=== PATIENT | female | born 1945 | race Caucasian/White ===

== ENCOUNTER 2017-05-15 10:07 | Emergency (ER) | payer MEDICARE, BC ==
[2017-05-15 10:20] VITALS: BP 156/87
--- NOTE | 2017-05-15 11:33 | EDM.PDOC ---
ED HPI GENERAL MEDICAL PROBLEM - General Chief Complaint: Lower Extremity Injury/Pain Stated Complaint: WEAKNESS IN LEGS Time Seen by Provider: 05/15/17 11:08 Source of Information: Reports: Patient History Limitations: Reports: No Limitations - History of Present Illness INITIAL COMMENTS - FREE TEXT/NARRATIVE: Patient is a 71-year-old female presents ED complaining of bilateral groin pain. Left is greater than right. Started last night approximately 2030 4 no known reason. Patient was sitting in a recliner was going to bed when the discomfort started. She states her legs are weak but really means that with weightbearing there is some discomfort to her groins worsen with lifting her legs. Pain is localized to the groin. Throughout the course of the evening the discomfort has not improved. No known precipitating factors. Denies any recent fall. There is no history of inguinal hernias. No pain noted to the distal aspect of her leg. No swelling, change in skin color, numbness/tingling, or claudication noted. She has had similar findings in the past for unknown reason. She has not done anything out of the ordinary have precipitated this. Patient lives a sedentary lifestyle. Pain is again localized described as a sharp discomfort. She has not taken any medications for the discomfort. She denies any soreness to her neck or shoulder region. No history of polymyalgia rheumatica. No history of myositis. Denies any fever/chills, nausea/vomiting, chest pain, shortness of breath, abdominal pain, dysuria, or any additional complaints. Left Groin Pain Score (Numeric/FACES): 2 - Related Data Allergies Allergy/AdvReac Type Severity Reaction Status Date / Time amoxicillin [From Augmentin] Allergy Change Verified 05/15/17 10:15 Mental Status clavulanic acid Allergy Change Verified 05/15/17 10:15 [From Augmentin] Mental Status Iymfivc-Oyp-Unm Reductase Allergy Joint Pain Verified 05/15/17 10:15 Inhibitor telmisartan [From Micardis] Allergy Other Verified 05/15/17 10:15 Home Meds: Home Meds Hydrochlorothiazide 25 mg PO DAILY 05/29/16 [History] Lisinopril 30 mg PO DAILY 05/29/16 [History] metFORMIN [Glucophage] 850 mg PO BID 05/29/16 [History] Past Medical History Cardiovascular History: Reports: Hypertension Gastrointestinal History: Reports: GERD Musculoskeletal History: Reports: Osteoarthritis Endocrine/Metabolic History: Reports: Diabetes, Type II Oncologic (Cancer) History: Reports: Basal Cell Carcinoma - Past Surgical History HEENT Surgical History: Reports: Tonsillectomy GI Surgical History: Reports: Cholecystectomy Female Surgical History: Reports: Hysterectomy Musculoskeletal Surgical History: Reports: Knee Replacement Social & Family History - Tobacco Use Smoking Status *Q: Never Smoker Second Hand Smoke Exposure: No - Caffeine Use Caffeine Use: Reports: Soda - Recreational Drug Use Recreational Drug Use: No - Living Situation & Occupation Living situation: Reports: , Alone Occupation: Retired Review of Systems - Review of Systems Review Of Systems: ROS reveals no pertinent complaints other than HPI. ED EXAM, GENERAL - Physical Exam Exam: See Below Exam Limited By: No Limitations General Appearance: Alert, WD/WN, No Apparent Distress Ears: Hearing Grossly Normal Nose: Normal Inspection Throat/Mouth: Normal Voice, No Airway Compromise Neck: Normal Inspection Respiratory/Chest: No Respiratory Distress, Lungs Clear, Normal Breath Sounds Cardiovascular: Normal Peripheral Pulses, Regular Rate, Rhythm Peripheral Pulses: 2+: Radial (R) GI/Abdominal: Normal Bowel Sounds, Soft, Non-Tender, No Organomegaly, No Distention, Other (No direct or femoral inguinal hernias present. No pain with palpation. Pain is worsen with flexion of the upper leg bilaterally. Again left greater than right. No sensory/motor deficits distally. No concerns for DVT.) Extremities: Normal Inspection, Non-Tender (With palpation), No Pedal Edema, Normal Capillary Refill, Other (Tenderness noted to the left and right groin with flexion of upper legs.) Neurological: Alert, Oriented, CN II-XII Intact, Normal Cognition, No Motor/ Sensory Deficits Psychiatric: Normal Affect, Normal Mood Skin Exam: Warm, Dry, Intact, Normal Color Course - Vital Signs Last Recorded V/S: Last Vital Signs Temp 97.8 F 05/15/17 10:15 Pulse 98 05/15/17 10:15 Resp 16 05/15/17 10:15 BP 156/87 H 05/15/17 10:15 Pulse Ox 92 L 05/15/17 10:15 - Orders/Labs/Meds Orders: Active Orders 24 hr Category Date Time Status EKG 12 Lead [EKG Documentation Completion] [RC] STAT Care 05/15/17 10:34 Active Labs: Laboratory Tests 05/15/17 05/15/17 05/15/17 Range/Units 10:50 10:50 10:50 WBC 12.21 H (3.98-10.04) K/mm3 RBC 4.80 (3.98-5.22) M/mm3 Hgb 14.0 (11.2-15.7) gm/L Hct 42.6 (34.1-44.9) % MCV 88.8 (79.4-94.8) fl MCH 29.2 (25.6-32.2) pg MCHC 32.9 (32.2-35.5) g/dl RDW Std Deviation 40.9 (36.4-46.3) fL Plt Count 265 (182-369) K/mm3 MPV 10.6 (9.4-12.3) fl Neut % (Auto) 67.9 (34.0-71.1) % Lymph % (Auto) 18.2 L (19.3-51.7) % [place] % (Auto) 12.3 (4.7-12.5) % Eos % (Auto) 1.0 (0.7-5.8) Baso % (Auto) 0.4 (0.1-1.2) % Neut # (Auto) 8.29 H (1.56-6.13) K/mm3 Lymph # (Auto) 2.22 (1.18-3.74) K/mm3 [place] # (Auto) 1.50 H (0.24-0.36) K/mm3 Eos # (Auto) 0.12 (0.04-0.36) K/mm3 Baso # (Auto) 0.05 (0.01-0.08) K/mm3 ESR 28 H (0-20) mm/hr Sodium 142 (136-145) mEq/L Potassium 3.6 (3.5-5.1) mEq/L Chloride 103 (98-107) mEq/L Carbon Dioxide 28 (21-32) mEq/L Anion Gap 14.6 (5-15) BUN 12 (7-18) mg/dL Creatinine 1.0 (0.55-1.02) mg/dL Est Cr Clr Drug Dosing 45.85 mL/min Estimated GFR (MDRD) 55 (>60) mL/min BUN/Creatinine Ratio 12.0 L (14-18) Glucose 158 H (80-115) mg/dL Calcium 9.4 (8.5-10.1) mg/dL Total Bilirubin 0.5 (0.2-1.0) mg/dL AST 16 (15-37) U/L ALT 20 (14-59) U/L Alkaline Phosphatase 52 (46-116) U/L Creatine Kinase (26-192) U/L C-Reactive Protein (<1.0) mg/dL Total Protein 7.2 (6.4-8.2) g/dl Albumin 3.5 (3.4-5.0) g/dl Globulin 3.7 gm/dL Albumin/Globulin Ratio 1.0 (1-2) Urine Color (Yellow) Urine Appearance (Clear) Urine pH (5.0-8.0) Ur Specific [place] (1.005-1.030) Urine Protein (Negative) Urine Glucose (UA) (Negative) Urine Ketones (Negative) Urine Occult Blood (Negative) Urine Nitrite (Negative) Urine Bilirubin (Negative) Urine Urobilinogen (0.2-1.0) Ur Leukocyte Esterase (Negative) Urine RBC (0-5) /hpf Urine WBC (0-5) /hpf Ur Epithelial Cells (0-5) /hpf Calcium Oxalate Crystal (NONE) Urine Bacteria (FEW) /hpf Urine Mucus (FEW) /hpf 05/15/17 05/15/17 05/15/17 Range/Units 10:50 10:50 14:15 WBC (3.98-10.04) K/mm3 RBC (3.98-5.22) M/mm3 Hgb (11.2-15.7) gm/L Hct (34.1-44.9) % MCV (79.4-94.8) fl MCH (25.6-32.2) pg MCHC (32.2-35.5) g/dl RDW Std Deviation (36.4-46.3) fL Plt Count (182-369) K/mm3 MPV (9.4-12.3) fl Neut % (Auto) (34.0-71.1) % Lymph % (Auto) (19.3-51.7) % [place] % (Auto) (4.7-12.5) % Eos % (Auto) (0.7-5.8) Baso % (Auto) (0.1-1.2) % Neut # (Auto) (1.56-6.13) K/mm3 Lymph # (Auto) (1.18-3.74) K/mm3 [place] # (Auto) (0.24-0.36) K/mm3 Eos # (Auto) (0.04-0.36) K/mm3 Baso # (Auto) (0.01-0.08) K/mm3 ESR (0-20) mm/hr Sodium (136-145) mEq/L Potassium (3.5-5.1) mEq/L Chloride (98-107) mEq/L Carbon Dioxide (21-32) mEq/L Anion Gap (5-15) BUN (7-18) mg/dL Creatinine (0.55-1.02) mg/dL Est Cr Clr Drug Dosing mL/min Estimated GFR (MDRD) (>60) mL/min BUN/Creatinine Ratio (14-18) Glucose (80-115) mg/dL Calcium (8.5-10.1) mg/dL Total Bilirubin (0.2-1.0) mg/dL AST (15-37) U/L ALT (14-59) U/L Alkaline Phosphatase (46-116) U/L Creatine Kinase 45 (26-192) U/L C-Reactive Protein 3.0 H* (<1.0) mg/dL Total Protein (6.4-8.2) g/dl Albumin (3.4-5.0) g/dl Globulin gm/dL Albumin/Globulin Ratio (1-2) Urine Color Yellow (Yellow) Urine Appearance Clear (Clear) Urine pH 6.0 (5.0-8.0) Ur Specific [place] 1.025 (1.005-1.030) Urine Protein Negative (Negative) Urine Glucose (UA) Negative (Negative) Urine Ketones Negative (Negative) Urine Occult Blood Negative (Negative) Urine Nitrite Negative (Negative) Urine Bilirubin Negative (Negative) Urine Urobilinogen 0.2 (0.2-1.0) Ur Leukocyte Esterase Negative (Negative) Urine RBC 0-5 (0-5) /hpf Urine WBC 0-5 (0-5) /hpf Ur Epithelial Cells 0-5 (0-5) /hpf Calcium Oxalate Crystal Few H (NONE) Urine Bacteria Few (FEW) /hpf Urine Mucus Few (FEW) /hpf Meds: Medications Discontinued Medications Generic Name Dose Route Start Last Admin Trade Name Margaret PRN Reason Stop Dose Admin Acetaminophen 975 mg 05/15/17 13:33 05/15/17 14:02 Tylenol PO 05/15/17 13:34 975 mg NOW ONE Administration - Re-Assessments/Exams Free Text/Narrative Re-Assessment/Exam: Will obtain basic labs including CBC, chem 14, CRP, and ESR. EKG and chest x- ray were obtained prior to me seeing the patient. Patient had sats in the low 90s and thus O2 via nasal cannula was applied. Sats are 92% at this time. EKG revealed sinus rhythm at a rate of [address] changes. Labs reviewed. Mild elevation of WBC with left shift. CRP is 3 and esr is 28. UA is pending. 05/15/17 13:33 Ordered CK and tylenol 975mg PO. 05/15/17 14:59 CK was 45. UA was negative for infection. Will discharge patient home with instructions as documented. Departure - Departure Time of Disposition: 14:59 Disposition: Home, Self-Care 01 Condition: Good (inguinal pain) Clinical Impression: Inguinal pain of both sides - Discharge Information Referrals: Elizabeth Giles DO [Primary Care Provider] - Forms: ED Department Discharge Additional Instructions: Etiology of complaint musculoskeletal in nature. Thus treatment is symptomatic care including: refrain from any activities that cause worsening pain, tylenol 650mg every 6 hrs and ibuprofen 600mg every 6 hours in alternating fashion for pain, ice to the affected area as needed. Followup with PCP the end of this week or first part of next week for resolution. If symptoms worsening please return to the E.D.
--- NOTE | 2017-05-15 12:13 | CR ---
Chest: Portable view of the chest was obtained. Comparison: Previous chest x-ray of 05/29/[address] chest of 05/29/16. Heart size and mediastinum are within normal limits. Lungs are clear. Bony structures are grossly intact. Impression: 1. Nothing acute is appreciated on portable chest x-ray. Diagnostic code #1
[2017-05-15] MEDS ORDERED: Acetaminophen 325 MG Tab PO ONE (13:33)
== END 2017-05-15 15:23 | disposition home or self-care (01) ==
LOC: JD.ED 10:07
DX: R10.31 Right lower quadrant pain (principal); R10.32 Left lower quadrant pain; I10 Essential (primary) hypertension; K21.9 Gastro-esophageal reflux disease without esophagitis; M19.90 Unspecified osteoarthritis, unspecified site; E11.9 Type 2 diabetes mellitus without complications; Z88.1 Allergy status to other antibiotic agents; Z79.899 Other long term (current) drug therapy; Z79.84 Long term (current) use of oral hypoglycemic drugs
CPT/HCPCS: 36415; 71010; 80053; 81001; 82550; 85025; 85652; 86140; 93005; 99284; A9270

== ENCOUNTER 2020-05-07 16:17 | Emergency (ER) | payer MEDICARE, BC ==
[2020-05-07 16:35] VITALS: BP 136/78; PULSE 75
--- NOTE | 2020-05-07 16:59 | CR ---
Left ankle: 4 views left ankle were obtained. Comparison: No previous ankle study. Plantar spur is noted. Vascular calcification is seen. Bony structures are slightly osteopenic. Soft tissue swelling appears to be present. No acute fracture or other bony abnormality is appreciated. Impression: 1. Findings as noted above. 2. Nothing acute is appreciated on left ankle exam. Diagnostic code #2 This report was dictated in MDT
--- NOTE | 2020-05-07 17:00 | CR ---
Left foot: 4 views left foot were obtained. Comparison: No previous foot study. Plantar spur is noted. Soft tissue swelling appears to be present. No discrete fracture or other bony abnormality is appreciated. Impression: 1. Soft soft tissue swelling and plantar spur. 2. No definite acute abnormality is appreciated on left foot exam. Diagnostic code #2 This report was dictated in MDT
--- NOTE | 2020-05-07 17:25 | EDM.PDOC ---
ED HPI GENERAL MEDICAL PROBLEM - General Chief Complaint: Lower Extremity Injury/Pain Stated Complaint: LT FOOT AND ANKLE SWOLLEN Time Seen by Provider: 05/07/20 16:38 Source of Information: Reports: Patient, RN Notes Reviewed History Limitations: Reports: No Limitations - History of Present Illness INITIAL COMMENTS - FREE TEXT/NARRATIVE: Patient is a 74-year-old female who presents to the ED for left ankle pain, and swelling. She states that she did have a fall up some stairs about a week ago, but did not think she hurt herself. She did note that the pain kind of develop ed on Monday but definitely got worse today. She also is appreciating some swelling to her left ankle. She is not taking any sort of Tylenol ibuprofen for pain management, she has not iced the area to help relieve some of the swelling. Nor has she been elevating her feet. She did try a little bit of icy hot on it, but this did not seem to help. She notes that the pain is about a 2 at rest, but a 10 with bearing weight. She is not having any fevers or chills, cough/shortness of breath, nausea/vomiting/diarrhea. Left Ankle Pain Score (Numeric/FACES): 2 - Related Data Allergies Allergy/AdvReac Type Severity Reaction Status Date / Time amoxicillin [From Augmentin] Allergy Severe Change Verified 05/07/20 16:35 Mental Status clavulanic acid Allergy Severe Change Verified 05/07/20 16:35 [From Augmentin] Mental Status [place]-Fgn-Dgr Reductase Allergy Severe Joint Pain Verified 05/07/20 16:35 Inhibitor telmisartan [From Micardis] Allergy Severe Other Verified 05/07/20 16:35 Home Meds: Home Meds Hydrochlorothiazide 25 mg PO DAILY 05/29/16 [History] Lisinopril 30 mg PO DAILY 05/29/16 [History] metFORMIN [Glucophage] 850 mg PO BID 05/29/16 [History] Past Medical History HEENT History: Reports: Impaired Vision Cardiovascular History: Reports: Hypertension Gastrointestinal History: Reports: GERD Musculoskeletal History: Reports: Osteoarthritis Endocrine/Metabolic History: Reports: Diabetes, Type II Oncologic (Cancer) History: Reports: Basal Cell Carcinoma - Past Surgical History HEENT Surgical History: Reports: Tonsillectomy GI Surgical History: Reports: Cholecystectomy Female Surgical History: Reports: Hysterectomy Musculoskeletal Surgical History: Reports: Knee Replacement Social & Family History - Family History Family Medical History: Noncontributory - Tobacco Use Smoking Status *Q: Never Smoker - Caffeine Use Caffeine Use: Reports: Soda - Recreational Drug Use Recreational Drug Use: No - Living Situation & Occupation Living situation: Reports: , Alone Occupation: Retired Review of Systems - Review of Systems Review Of Systems: Comprehensive ROS is negative, except as noted in HPI. ED EXAM, GENERAL - Physical Exam Exam: See Below Exam Limited By: No Limitations General Appearance: Alert, WD/WN, No Apparent Distress Respiratory/Chest: No Respiratory Distress, Lungs Clear, Normal Breath Sounds, No Accessory Muscle Use, Chest Non-Tender Cardiovascular: Normal Peripheral Pulses, Regular Rate, Rhythm, No Murmur Peripheral Pulses: 2+: Dorsalis Pedis (L), Dorsalis Pedis (R) Extremities: Normal Inspection (mild amount of swelling noted to left ankle), Normal Capillary Refill Neurological: Alert, Oriented, Normal Cognition, No Motor/Sensory Deficits Psychiatric: Normal Affect, Normal Mood Skin Exam: Warm, Dry, Intact, Normal Color, No Rash Course - Vital Signs Last Recorded V/S: Last Vital Signs Temp 98.4 F 05/07/20 16:31 Pulse 75 05/07/20 16:31 Resp 16 05/07/20 16:31 BP 136/78 05/07/20 16:31 Pulse Ox 93 L 05/07/20 16:31 - Orders/Labs/Meds Orders: Active Orders 24 hr Category Date Time Status ABIMAEL Bandage [Elastic Wrap] [OM.PC] Routine Oth 05/07/20 17:19 Ordered - Re-Assessments/Exams Free Text/Narrative Re-Assessment/Exam: 05/07/20 17:22 Patient presents to the ED for her left ankle injury. X-rays were obtained at time of triage, and there were no acute abnormality seen on the ankle x-ray, there was some soft tissue swelling noted with a plantar spur on the foot x-ray otherwise no acute fractures or abnormality were appreciated. I do believe the patient probably twisted her ankle when she fell last week, and it is just manifesting at this time, she is continue to walk on the foot. The area will be Abimael wrapped, I will have her start ibuprofen every 6 hours for pain relief, ice and elevate the area as tolerated for further swelling relief. I did note to the patient if it does not get better in another week to 10 days, that she consider having it reevaluated for further soft tissue injury. 05/07/20 19:28 There was some miscommunication between her worker, triage nurse and me. Her primary care provider did call over, specifically wanted an ultrasound done to rule out DVT. After the patient was discharged, the daughter made us aware of this. We did order ultrasound for outpatient management purposes. The roadway technician did confirm that there does not look to be any sort of DVT. However official radiology read is pending but again it does not appear that there is any sort of DVT. 05/07/20 20:54 Official radiology read has come back, and is negative for DVT within the left lower extremity or within the right common femoral vein. Departure - Departure Time of Disposition: 17:23 Disposition: Home, Self-Care 01 Condition: Good Clinical Impression: Injury of left ankle and foot Qualifiers: Encounter type: initial encounter Qualified Code(s): S99.912A - Unspecified injury of left ankle, initial encounter - Discharge Information *PRESCRIPTION DRUG MONITORING PROGRAM REVIEWED*: No *COPY OF PRESCRIPTION DRUG MONITORING REPORT IN PATIENT DORITA: No Instructions: Foot Sprain Referrals: Kristie Melendez MD [Primary Care Provider] - Forms: ED Department Discharge Additional Instructions: You have been evaluated in the ED for your left foot and ankle injury, pain and swelling. Your x-ray demonstrated no acute fracture of your left ankle or foot. You do have some mild soft tissue swelling and a plantar spur of your left heel. Please use ice as tolerated to the affected area. Please try to elevate the affected area to relieve swelling. You may utilize your walker at home, or crutches to walk around with, to help provide further pain relief. You may take Tylenol 500 mg or ibuprofen 600mg q6 hrs for pain relief. Please do so until you have a tolerable level of pain with activity. Do not exceed 4000mg Tylenol or 3200mg ibuprofen in a 24 hour time period. Please return to ED if your symptoms should change or worsen. Sepsis Event Note (ED) - Evaluation Sepsis Screening Result: No Definite Risk - Focused Exam Vital Signs: Vital Signs Temp Pulse Resp BP Pulse Ox 05/07/20 16:31 98.4 F 75 16 136/78 93 L - My Orders Last 24 Hours: My Active Orders 05/07/20 17:19 ABIMAEL Bandage [Elastic Wrap] [OM.PC] Routine - Assessment/Plan Last 24 Hours: My Active Orders 05/07/20 17:19 ABIMAEL Bandage [Elastic Wrap] [OM.PC] Routine
== END 2020-05-07 17:34 | disposition home or self-care (01) ==
LOC: JD.ED 16:17
DX: S99.912A Unspecified injury of left ankle, initial encounter (principal); I10 Essential (primary) hypertension; E11.9 Type 2 diabetes mellitus without complications; Z79.84 Long term (current) use of oral hypoglycemic drugs; Z79.899 Other long term (current) drug therapy; Z88.1 Allergy status to other antibiotic agents; Z88.8 Allergy status to other drugs, medicaments and biological substances; W10.9XXA Fall (on) (from) unspecified stairs and steps, initial encounter
CPT/HCPCS: 73610-26-LT; 73610-LT; 73630-26-LT; 73630-LT; 99282; 99283-25